=== PATIENT | female | born 1960 | race Caucasian/White ===

== ENCOUNTER → 2023-12-30 13:10 | Outpatient (REF) | payer BC, SELFPAY | LOC: HWRAD 13:10 | PROVIDERS: ATTENDING PHYSICIAN Family Medicine | DX: M54.2 Cervicalgia (principal) | CPT/HCPCS: 72052 ==

== ENCOUNTER → 2024-06-17 12:00 | Outpatient (REF) | payer BC, SELFPAY | LOC: DHSLP 12:00 | PROVIDERS: ATTENDING PHYSICIAN Family Medicine | DX: G47.19 Other hypersomnia (principal); R06.83 Snoring | CPT/HCPCS: 95800 ==

== ENCOUNTER → 2024-07-20 11:03 | Outpatient (REF) | payer BC, SELFPAY | LOC: HWWDC 11:03 | PROVIDERS: ATTENDING PHYSICIAN Obstetrics & Gynecology; FAMILY PHYSICIAN Family Medicine | DX: Z12.31 Encounter for screening mammogram for malignant neoplasm of breast (principal) | CPT/HCPCS: 77063; 77067 ==

== ENCOUNTER → 2024-07-22 09:07 | Outpatient (REF) | payer BC, SELFPAY | LOC: HWRAD 09:07 | PROVIDERS: ATTENDING PHYSICIAN Family Medicine | DX: R74.8 Abnormal levels of other serum enzymes (principal); R17 Unspecified jaundice | CPT/HCPCS: 76700 ==

== ENCOUNTER → 2025-05-16 14:50 | Outpatient (REF) | payer MEDICARE, OTHER, SELFPAY | LOC: MRI 14:50 | PROVIDERS: ATTENDING PHYSICIAN Student in an Organized Health Care Education/Training Program; FAMILY PHYSICIAN Family Medicine | DX: R79.89 Other specified abnormal findings of blood chemistry (principal); R74.01 Elevation of levels of liver transaminase levels | CPT/HCPCS: 74183; 76391; A9575 ==

== ENCOUNTER 2025-07-18 06:19 | Day surgery (SDC) | payer MEDICARE, OTHER, SELFPAY ==
[2025-07-18 10:00] VITALS: BMI 17.9
[2025-07-18 10:01] VITALS: BP 103/56; BMI 17.9
[2025-07-18 12:22] VITALS: BP 103/62
[2025-07-18 12:30] VITALS: BP 103/62
[2025-07-18 12:50] VITALS: BP 109/59
[2025-07-18 13:00] VITALS: BP 115/58
== END 2025-07-18 13:43 | disposition home or self-care (01) ==
LOC: SDS 06:19
PROVIDERS: ATTENDING PHYSICIAN Internal Medicine Gastroenterology
DX: K86.2 Cyst of pancreas (principal); K31.7 Polyp of stomach and duodenum
CPT/HCPCS: 43242; 43239; 88305

== ENCOUNTER → 2025-07-21 10:30 | Outpatient (REF) | payer MEDICARE, OTHER, SELFPAY | LOC: WDC 10:30 | PROVIDERS: ATTENDING PHYSICIAN Family Medicine | DX: Z12.31 Encounter for screening mammogram for malignant neoplasm of breast (principal); M81.0 Age-related osteoporosis without current pathological fracture | CPT/HCPCS: 77063; 77067; 77080 ==